=== PATIENT | female | born 1960 | race Caucasian/White ===

== ENCOUNTER → 2019-07-19 | Outpatient (CLI) | payer BC, OTHER | END | disposition home or self-care (01) | LOC: RAD 13:11 | PROVIDERS: ATTEND Internal Medicine Cardiovascular Disease | DX: I27.20 Pulmonary hypertension, unspecified (principal) | CPT/HCPCS: 71046; 78582; A9540; A9558 ==

== ENCOUNTER 2019-07-29 09:02 | Day surgery (SDC) | payer BC, OTHER ==
[~2019-07-29] VITALS: Ht 170.2 cm; Wt 72.5 kg
[2019-07-29 10:08] VITALS: BP 154/106
[2019-07-29] MEDS ORDERED: FURO20TA3 PO (10:23)
[2019-07-29] MEDS ORDERED: POTA10TA12 PO (10:23)
[2019-07-29] MEDS ORDERED: NAPR220C2 PO (10:24)
[2019-07-29] MEDS ORDERED: DIPHENHYDRAMINE 50 MG/ML, 1ML ONE (10:28)
[2019-07-29] MEDS ORDERED: DIPHENHYDRAMINE 50 MG/ML, 1ML IVPush ONE (10:30)
[2019-07-29] MEDS ORDERED: PLEASE ENTER HEIGHT AND WEIGHT MC SCH (10:30)
[2019-07-29] MEDS ORDERED: FENTANYL PF 100 MCG/2ML ONE (11:16)
[2019-07-29] MEDS ORDERED: LIDOCAINE-MPF 1%, 5ML ONE (11:17)
[2019-07-29] MEDS ORDERED: VERAPAMIL 2.5 MG/ML, 2ML ONE (11:17)
[2019-07-29] MEDS ORDERED: HEPARIN 1,000 UNITS/ML, 10ML ONE (11:17)
[2019-07-29] MEDS ORDERED: NITROGLYCERIN 5 MG/ML, 10ML ONE (11:17)
[2019-07-29] MEDS ORDERED: MIDAZOLAM 1 MG/ML, 5ML ONE (11:17)
[2019-07-29] MEDS ORDERED: METOPROLOL 1 MG/ML, 5ML ONE (11:35)
[2019-07-29] MEDS ORDERED: SODIUM CHLORIDE 0.9% IV ONE (12:00)
[2019-07-29] MEDS ORDERED: ADENOSINE IV ONE (12:00)
[2019-07-29] MEDS ORDERED: hydrALAzine 20 MG/ML, 1ML ONE (12:42)
[2019-07-29] MEDS ORDERED: SODIUM CHLORIDE 0.9% 1,000 ML IV SCH (13:00)
== END 2019-07-29 15:29 | disposition home or self-care (01) ==
LOC: CACL 09:02
PROVIDERS: ATTEND Internal Medicine Cardiovascular Disease
DX: R06.02 Shortness of breath (principal); I27.20 Pulmonary hypertension, unspecified; J44.9 Chronic obstructive pulmonary disease, unspecified; F17.210 Nicotine dependence, cigarettes, uncomplicated; Z79.899 Other long term (current) drug therapy
CPT/HCPCS: 93460; 93463; 99156; 99157; C1769; C1894; J0153; J0360; J1200; J1644; J2250; J3010; Q9967